=== PATIENT | female | born 1995 | race Caucasian/White ===

== ENCOUNTER 2017-06-02 07:46 | Inpatient (IN) | payer BC, OTHER ==
--- NOTE | 2017-06-02 08:32 | P.HPOB ---
History of Present Illness H&P Date: 06/02/17 This is a 21 -year-old white female 3 para 0111 EDC 06/20 18 at 37-4/7 weeks' gestation. Patient presented from home, delivering her baby on the couch. She states she woke at 05 100 with uterine contractions. She was getting ready to come into the hospital at which time she felt rectal pressure. She went to the couch and delivered very quickly liveborn male . EMS was called, scores were 6 and 9 at one and 5 minutes respectively. Patient states she believes her water broke approximately 3 minutes prior to delivery, clear fluid. She was taken to the hospital at that point. Obstetric history is significant for blood type O-, rubella status immune. Group B strep cultures positive. Pap smear, gonorrhea and chlamydia cultures, VDRL, urine culture, hepatitis B surface antigen, HIV all negative. Past surgical history is significant for negative tobacco, no alcohol or drug use, patient is . Past obstetric history vaginal delivery at 36 weeks' gestation with high blood pressure. Family history is unremarkable. Past medical history significant for ADHD and reflux. Past surgical history negative. Current medications vitamins daily. ALLERGIES none known. On exam this is a pleasant white female, she is 5 foot 10 inches, weight approximately 130 pounds, vital signs are stable and she is afebrile. The chest is clear in all oconnor. The extremities reveal no edema. Placenta delivers spontaneously, it is inspected and noted to be intact. The hospital, at approximately 0750 hours. Uterus is massaged. Inspection of the cervix, vagina, perineum, periurethral and perirectal areas reveals a small right perineal laceration. This was injected with lidocaine and repaired using 3-0 Vicryl suture. Total estimated blood loss 200 mL's. weighs 6 lbs. 11 oz. or 335 g. Future patient is aware of his status. Cord blood is sent to the lab for Rh- status. care is initiated. Review of Systems Constitutional: Reports as per HPI Past Medical History Past Medical History: No Reported History, GERD/Reflux Additional Past Medical History / Comment(s): ADHD History of Any Multi-Drug Resistant Organisms: None Reported Past Surgical History: No Surgical Hx Reported Past Anesthesia/Blood Transfusion Reactions: No Reported Reaction Past Psychological History: ADD/ADHD, Anxiety Smoking Status: Never smoker Past Drug Use History: None Reported - Past Family History Father Family Medical History: GERD/Reflux Medications and Allergies Home Medications Medication Instructions Recorded Confirmed Type Ibuprofen [Motrin] 600 mg PO Q6HR PRN #30 tab 09/30/15 Rx Labetalol [Trandate] 100 mg PO TID #15 tab 09/30/15 Rx Allergies Allergy/AdvReac Type Severity Reaction Status Date / Time No Known Allergies Allergy Verified 09/26/15 15:59 Exam See dictation under HPI please Assessment and Plan Plan: care to be initiated at this time. Circumcision tomorrow. Time with Patient: Greater than 30
[2017-06-02] MEDS ORDERED: SIMETHICONE 80 MG CHEWABLE PO PRN (08:45)
[2017-06-02] MEDS ORDERED: diphenhydrAMINE 25 MG CAP PO PRN (08:45)
[2017-06-02] MEDS ORDERED: OXYTOCIN 20 UNITS/1000 ML NS 1,000 ML IV SCH (08:45)
[2017-06-02] MEDS ORDERED: ZOLPIDEM 5 MG TAB PO PRN (08:45)
[2017-06-02] MEDS ORDERED: diphenhydrAMINE 50 MG/ML 1 ML VIAL IVP PRN ×2 (08:45)
[2017-06-02] MEDS ORDERED: BENZOCAINE/MENTHOL SPRAY 1 GM/SPRAY AEROSOL TOPICAL PRN (08:45)
[2017-06-02] MEDS ORDERED: diphenhydrAMINE 50 MG CAP PO PRN (08:45)
[2017-06-02] MEDS ORDERED: WITCH HAZEL 1 EACH MED..PAD TOPICAL PRN (08:45)
[2017-06-02] MEDS: IBUPROFEN 600 MG TAB PO PRN ×3 (08:45→22:25)
[2017-06-02] MEDS ORDERED: LANOLIN CREAM 5 GM TUBE TOPICAL PRN (08:45)
[2017-06-02] MEDS ORDERED: HYDROCORTISONE 2.5% RECTAL CREAM 30 GM TUBE RECTAL PRN (08:45)
[2017-06-02 09:28] VITALS: BMI 33.4
[2017-06-02 12:19] LABS: Uric Acid 6.3 mg/dL (3.7-7.4)
[2017-06-02] MEDS: ACETAMINOPHEN TAB 325 MG TAB PO PRN ×2 (19:56→23:52)
[2017-06-02] MEDS: SENNOSIDES-DOCUSATE SODIUM 1 EACH TAB PO SCH (19:57)
[2017-06-02] MEDS ORDERED: Rhogam IMMUNE GLOBULIN 1,500 UNIT/1 ML IM ONE (19:59)
[2017-06-03] MEDS: IBUPROFEN 600 MG TAB PO PRN ×3 (03:30→19:51)
[2017-06-03] MEDS: ACETAMINOPHEN TAB 325 MG TAB PO PRN ×3 (07:23→23:29)
--- NOTE | 2017-06-03 09:07 | P.PN ---
Subjective Progress Note Date: 06/03/17 Slept well, no complaints. Objective - Vital Signs Vital signs: Vital Signs Temp 97.9 F 06/03/17 07:36 Pulse 54 L 06/03/17 07:36 Resp 16 06/03/17 07:36 BP 110/71 06/03/17 07:36 Pulse Ox Intake & Output 06/02/17 06/03/17 06/03/17 18:59 06:59 18:59 Intake Total 1000 Balance 1000 Weight 72.575 kg Intake: Oral 1000 Other: # Voids 2 2 - Constitutional General appearance: Present: average body habitus, cooperative - EENT Eyes: Present: PERRLA ENT: Present: hearing grossly normal - Neck Neck: Present: normal ROM Thyroid: bilateral: normal size - Respiratory Respiratory: bilateral: CTA - Cardiovascular Rhythm: regular - Gastrointestinal General gastrointestinal: Present: normal bowel sounds - Integumentary Integumentary: Present: normal - Neurologic Neurologic: Present: CNII-XII intact - Musculoskeletal Musculoskeletal: Present: gait normal, strength equal bilaterally - Psychiatric Psychiatric: Present: A&O x's 3, appropriate affect, intact judgment & insight Assessment and Plan Assessment: Doing well post day #1 Plan: Continue post care. Circumcision now. Likely discharge home tomorrow. Time with Patient: Less than 30
[2017-06-03] MEDS: SENNOSIDES-DOCUSATE SODIUM 1 EACH TAB PO SCH ×2 (10:04→19:51)
[2017-06-04] MEDS: IBUPROFEN 600 MG TAB PO PRN ×2 (03:03→11:04)
--- NOTE | 2017-06-04 07:59 | P.DS ---
Providers Date of admission: 06/02/17 07:46 Expected date of discharge: 06/04/17 Attending physician: Missy Suárez - Discharge Diagnosis(es) (1) Precipitous delivery Current Visit: Yes Status: Acute (2) Active labor at term Current Visit: Yes Status: Acute Hospital Course: The patient is a 21-year-old 3 para 0111 admitted at 37-4/7 weeks. This has been uncomplicated though she does have a history of previous preeclampsia and her first with subsequent delivery. She is Rh- and received RhoGAM at 28 weeks and additionally is group B strep positive. For this labor, as she is preparing to come to the hospital should she felt significant pressure and actually delivered the infant on her couch at home while EMS was on the way. She was delivered of a viable baby boy with Apgars of 6 at 1 minute and 9 at 5 minutes. She then was brought to the hospital by EMS at which time the placenta was delivered. Her course was unremarkable with vital signs remaining stable and her temperature was afebrile throughout. She was deemed stable for discharge on day #2 and was discharged home to follow-up in the office in 6 weeks' time routinely. Discharge instructions included calling for any significantly increased bleeding or foul-smelling lochia, significantly increased fever abdominal pain, perineal complaints, breast complaints, or anything else that concerned her. She was additionally instructed to have nothing in the vagina for at least 6 weeks time to include intercourse. She understood her instructions and agrees to follow up as noted above. Discharge medications included continue vitamins as she has opted to breast-feed. She otherwise was to use [id number] analgesic pain medications. Maternal blood type is O- and cord blood was sent for evaluation for the necessity of RhoGAM prior to discharge. Rubella status is immune. Procedures: #1. Precipitous home delivery #2. Delivery of placenta Patient Condition at Discharge: Good Plan - Discharge Summary New Discharge Prescriptions: No Action No Known Home Medications [No Known Home Medications] Discharge Medication List No Known Home Medications [No Known Home Medications] 06/02/17 [History] Follow up Appointment(s)/Referral(s): Missy Suárez MD [STAFF PHYSICIAN] - 6 Weeks Discharge Disposition: HOME SELF-CARE
[2017-06-04] MEDS: ACETAMINOPHEN TAB 325 MG TAB PO PRN (08:06)
[2017-06-04] MEDS: SENNOSIDES-DOCUSATE SODIUM 1 EACH TAB PO SCH (08:07)
[2017-06-04 10:03] VITALS: BP 127/80; PULSE 68; RESP 16; TEMP 97.7
== END 2017-06-04 13:30 | disposition home or self-care (01) | DRG 775 ==
LOC: 4FBP 07:46
PROVIDERS: ADMIT Obstetrics & Gynecology; ATTEND Obstetrics & Gynecology
PROC: 10E0XZZ Delivery of Products of Conception, External Approach (ICD-10-PCS; principal; 2017-06-02)
PROC: 0HQ9XZZ Repair Perineum Skin, External Approach (ICD-10-PCS; 2017-06-02)
DX: O70.9 Perineal laceration during delivery, unspecified (principal); O99.344 Other mental disorders complicating childbirth; F41.9 Anxiety disorder, unspecified; F90.9 Attention-deficit hyperactivity disorder, unspecified type; K21.9 Gastro-esophageal reflux disease without esophagitis; O99.62 Diseases of the digestive system complicating childbirth; O99.824 Streptococcus B carrier state complicating childbirth; O26.893 Other specified pregnancy related conditions, third trimester; Z67.91 Unspecified blood type, Rh negative; Z3A.36 36 weeks gestation of pregnancy
CPT/HCPCS: 84450; 84460; 84550; 85461; 88307

== ENCOUNTER 2018-01-16 12:19 | Emergency (ER) | payer BC, OTHER ==
[2018-01-16 12:43] VITALS: RESP 16
--- NOTE | 2018-01-16 12:43 | ED ---
Lower Extremity Injury HPI - General Chief Complaint: Extremity Injury, Lower Stated Complaint: LEFT KNEE INJURY Time Seen by Provider: 01/16/18 12:19 Source: patient, RN notes reviewed Mode of arrival: EMS Limitations: no limitations - History of Present Illness Initial Comments: This is a 22-year-old female who presents by EMS with complaints of patellar dislocation. She states she walked into a trailer hitch on the back of her vehicle. She states she's had this happen to her before. She was brought in by EMS. She was given IV pain medication she states her hurts to do any type of movement of her knee. She currently is breast-feeding. MD Complaint: knee injury - Related Data Home Medications Medication Instructions Recorded Confirmed No Known Home Medications 06/02/17 06/02/17 Allergies Allergy/AdvReac Type Severity Reaction Status Date / Time No Known Allergies Allergy Verified 06/02/17 08:44 Review of Systems ROS Statement: Those systems with pertinent positive or pertinent negative responses have been documented in the HPI. ROS Other: All systems not noted in ROS Statement are negative. Past Medical History Past Medical History: No Reported History, GERD/Reflux Additional Past Medical History / Comment(s): ADHD History of Any Multi-Drug Resistant Organisms: None Reported Past Surgical History: No Surgical Hx Reported Past Anesthesia/Blood Transfusion Reactions: No Reported Reaction Past Psychological History: ADD/ADHD, Anxiety Smoking Status: Never smoker Past Drug Use History: None Reported - Past Family History Father Family Medical History: GERD/Reflux General Exam - General Exam Comments Initial Comments: This is a well-developed well-nourished awake alert oriented 3 female Limitations: no limitations General appearance: alert, anxious, in distress Head exam: Present: atraumatic, normocephalic, normal inspection Eye exam: Present: normal appearance, PERRL, EOMI. Absent: scleral icterus, conjunctival injection, periorbital swelling Extremities exam: Present: tenderness, normal capillary refill, other (Evidence of lateral displacement of the patella on the left lower extremity.). Absent: full ROM Neurological exam: Present: alert, oriented X3, CN II-XII intact Psychiatric exam: Present: normal affect, anxious Skin exam: Present: warm, dry, intact, normal color. Absent: rash Course Vital Signs 01/16/18 01/16/18 12:25 12:42 Temperature 98.3 F Pulse Rate 94 82 Respiratory 18 16 Rate Blood Pressure 116/69 100/70 O2 Sat by Pulse 99 99 Oximetry Procedures - Orthopedic Joint Reduction Joint #1 Consent Obtained: verbal consent Time Out Performed: Yes Side: left Joint Reduction Location: knee/patella Analgesia: none (The patient had previously had an IV pain medication per EMS) Technique Used: direct manipulation Post-Reduction Neuro Exam: intact Post-Reduction Vascular Exam: intact Post Reduction X-Ray Obtained: No (Not indicated) Splint Applied: Yes Patient Tolerated Procedure: well Medical Decision Making - Medical Decision Making I did discuss findings with the patient and her the patient will be discharged ice is recommended for next 24-48 hours Tylenol for pain Disposition Clinical Impression: Lateral subluxation of left patella, initial encounter Disposition: HOME SELF-CARE Condition: Good Instructions: Patellar Dislocation (ED) Additional Instructions: Ice 24-48 hours, Tylenol for pain Is patient prescribed a controlled substance at d/c from ED?: No Referrals: Abiodun Pang DO [Primary Care Provider] - 1-2 days
--- NOTE | 2018-01-16 12:45 | XR ---
EXAMINATION TYPE: XR knee limited LT , 2 VIEWS DATE OF EXAM ORDERED: 01/16/2018 HISTORY: Pain. COMPARISON: None. FINDINGS: The patella projects lateral to the intercondylar notch and is not seen overlying the inte rcondylar notch on the lateral projection. I suspect patellar dislocation. No definite fracture is se en. No joint effusion is seen. IMPRESSION: I SUSPECT A LATERAL PATELLAR DISLOCATION.
[2018-01-16 13:15] VITALS: BP 110/72; PULSE 81; TEMP 98.2
== END 2018-01-16 13:07 | disposition home or self-care (01) ==
LOC: EC 12:19
DX: S83.012A Lateral subluxation of left patella, initial encounter (principal); W22.8XXA Striking against or struck by other objects, initial encounter; Y92.009 Unspecified place in unspecified non-institutional (private) residence as the place of occurrence of the external cause
CPT/HCPCS: 73560; 99284; 27560; L1830 ×2

== ENCOUNTER → 2018-12-20 | Outpatient (CLI) | payer BC, OTHER ==
--- NOTE | 2018-12-20 14:46 | US ---
EXAMINATION TYPE: US abdomen complete DATE OF EXAM: 12/20/2018 COMPARISON: NONE CLINICAL HISTORY: 23-year-old female R10.811 right upper quadrant tenderness R11.0 nausea. TECHNIQUE: Multiple sonographic images of the abdomen are obtained. FINDINGS: EXAM MEASUREMENTS: Liver Length: 14.0 cm Gallbladder Wall: 0.2 cm CBD: 0.1 cm Spleen: 9.7 cm Right Kidney: 10.1 x 3.4 x 4.6 cm Left Kidney: 9.5 x 3.9 x 4.7 cm Pancreas: The majority of the pancreas is visualized and shows no gross abnormal value. Liver: wnl Gallbladder: wnl CBD: wnl Spleen: wnl Right Kidney: No hydronephrosis. Left Kidney: No hydronephrosis. Upper IVC: wnl Abd Aorta: wnl IMPRESSION: Unremarkable sonographic examination of the abdomen.
== END | disposition home or self-care (01) ==
LOC: RADUSWWP 11:49
PROVIDERS: ATTEND Family Medicine
DX: R10.811 Right upper quadrant abdominal tenderness (principal); R11.0 Nausea
CPT/HCPCS: 76700

== ENCOUNTER → 2019-05-03 | Outpatient (CLI) | payer BC, OTHER ==
--- NOTE | 2019-05-03 15:53 | US ---
EXAMINATION TYPE: US pelvic complete DATE OF EXAM: 05/03/2019 COMPARISON: NONE CLINICAL HISTORY: N92.6 Irregular menstruation, unspecified. Patient states no pain TECHNIQUE: . Transabdominal sonographic images of the pelvis were acquired. Date of LMP: Irregular cycles EXAM MEASUREMENTS: Uterus: 7.0 x 2.9 x 3.5 cm Endometrial Stripe: 0.4 cm Right Ovary: 2.6 x 2.1 x 1.7 cm Left Ovary: 2.7 x 1.7 x 1.8 cm 1. Uterus: Anteverted wnl 2. Endometrium: wnl 3. Right Ovary: Follicles visualized, wnl 4. Left Ovary: Follicles visualized, wnl 5. Bilateral Adnexa: wnl 6. Posterior cul-de-sac: wnl IMPRESSION: Unremarkable pelvic ultrasound
== END | disposition home or self-care (01) ==
LOC: RADUSWWP 13:41
PROVIDERS: ATTEND Family Medicine
DX: N92.6 Irregular menstruation, unspecified (principal)
CPT/HCPCS: 76856

== ENCOUNTER → 2020-01-19 | Outpatient (CLI) | payer BC, OTHER ==
[~2020-01-19] MED LIST: BETAMET ACET-BETAMETH SOD PHOS 6 MG/ML MDV IM SCH; CALCIUM GLUCONATE 1 GM/10 ML VIAL IV PRN; LACTATED RINGERS 1,000 ML IV SCH; MAGNESIUM SULFATE-WATER PMX 20 GM in WATER FOR INJECTION 1 500ML.BAG IV SCH; MAGNESIUM SULFATE-WATER PMX 4 GM in WATER FOR INJECTION 1 100ML.BAG IVPB ONE; PENICILLIN G POTASSIUM 2,500,000 UNIT in DEXTROSE 5% IN WATER 100 ML IVPB SCH; PENICILLIN G POTASSIUM 5,000,000 UNIT in DEXTROSE 5% IN WATER 100 ML IVPB ONE
--- NOTE | 2020-01-19 20:28 | P.HPOB ---
History of Present Illness H&P Date: 01/19/20 Past Medical History Past Medical History: No Reported History, GERD/Reflux Additional Past Medical History / Comment(s): ADHD History of Any Multi-Drug Resistant Organisms: None Reported Past Surgical History: No Surgical Hx Reported Past Anesthesia/Blood Transfusion Reactions: No Reported Reaction Smoking Status: Never smoker - Past Family History Father Family Medical History: GERD/Reflux Medications and Allergies Home Medications Medication Instructions Recorded Confirmed Type Pnv No.95/Ferrous Fum/Folic AC 1 tab PO ONCE 01/19/20 01/19/20 History [ Multivitamin Tablet] Allergies Allergy/AdvReac Type Severity Reaction Status Date / Time No Known Allergies Allergy Verified 01/19/20 19:34 Exam Intake and Output 01/19/20 01/19/20 01/19/20 06:59 14:59 22:59 Other: Weight 58.06 kg
--- NOTE | 2020-01-19 20:37 | P.HPOB ---
History of Present Illness H&P Date: 01/19/20 Chief Complaint: 34 and one sevenths weeks, labor The patient is a 24-year-old 4 para 1112 admitted at 34 and one sevenths weeks as established by last menstrual period and confirmed by 19 week ultrasound. She is admitted in active labor with all signs reassuring, category 1 heart rate tracing. She presented to labor and delivery with significant contractions and was noted to be penelope every 2-3 minutes. Cervical examination by the nursing staff demonstrates her cervix to be 2 cm dilated, 80% effaced, the vertex in presentation at -1 station. She has a history of a previous delivery at approximately 36 weeks of . Her to this point has been essentially uncomplicated though she is Rh- and received RhoGAM at 28 weeks. She has also requested a tubal ligation and signed consent to that effect in the office. Group B strep status is unknown at this time but she has a history of 2 previous pregnancies with positive group B strep status. Obstetrical history: 4 para 1112 with 1 term vaginal delivery and one 36 week vaginal delivery as well as one miscarriage. Current statistics are listed in history present illness. EDC of 03/01/2020 was established by last menstrual period and confirmed by 19 week ultrasound which time an anatomic survey was within normal limits. Laboratory workup demonstrates a blood type of O- with a negative antibody screen. Rubella status is immune. VDRL negative, urine screen negative, hepatitis B surface antigen negative. HIV was declined. Cultures were negative and early laboratories to screen for pre- existing concerns for PIH were all negative as well. One hour Glucola was within normal limits at 106. Group B strep status is pending. Pap smear was also normal. Gynecologic history: Unremarkable with no history of any infections to include STDs. Review of Systems Review of systems is confined to history of present illness. Past Medical History Past Medical History: No Reported History, GERD/Reflux Additional Past Medical History / Comment(s): ADHD History of Any Multi-Drug Resistant Organisms: None Reported Past Surgical History: No Surgical Hx Reported Past Anesthesia/Blood Transfusion Reactions: No Reported Reaction Smoking Status: Never smoker - Past Family History Father Family Medical History: GERD/Reflux Medications and Allergies Home Medications Medication Instructions Recorded Confirmed Type Pnv No.95/Ferrous Fum/Folic AC 1 tab PO ONCE 01/19/20 01/19/20 History [ Multivitamin Tablet] Allergies Allergy/AdvReac Type Severity Reaction Status Date / Time No Known Allergies Allergy Verified 01/19/20 19:34 Exam Intake and Output 01/19/20 01/19/20 01/19/20 06:59 14:59 22:59 Other: Weight 58.06 kg In general, this is a well-developed, well-nourished white female in no acute distress with complaints of contractions though she is not feeling all of them. Her heart has a regular rhythm and rate without murmur. Her lungs are clear to auscultation bilaterally in all oconnor. Her abdomen is gravid, nondistended, has normal active bowel sounds, soft, nontender, and without any palpable masses aside from the uterine fundus which is appropriate for gestational age. Her extremities are without any cyanosis, clubbing, or edema and are nontender to palpation bilaterally. Digital cervical examination performed by the nursing staff demonstrates her cervix to be 2 cm dilated, 80% effaced, with the vertex in presentation at -1 station. Previous check in the office 2 days ago demonstrated cervix with no dilation and 40% effaced by history. Assessment and Plan (1) 34 weeks gestation of Current Visit: Yes Status: Acute Code(s): Z3A.34 - 34 WEEKS GESTATION OF SNOMED Code(s): 20366871 (2) labor Current Visit: Yes Status: Acute Code(s): O60.00 - LABOR WITHOUT DELIVERY, UNSPECIFIED TRIMESTER SNOMED Code(s): 6433203 (3) Rh negative status during Current Visit: No Status: Acute Code(s): O09.899 - SUPERVISION OF OTHER HIGH RISK PREGNANCIES, UNSP TRIMESTER; Z67.91 - UNSPECIFIED BLOOD TYPE, RH NEGATIVE SNOMED Code(s): 568792232 Plan: Patient has been seen in triage and found to be in labor. As result, she has had magnesium sulfate started, 4 g IV bolus to be followed by 2 g per hour. Penicillin prophylaxis for group B strep has been started and she has received her first dose of betamethasone 12.5 mg intramuscularly to be repeated in 12-24 hours. I have discussed the case with the accepting physician, Dr. Morales, at [facility] in [place]. She is to be transferred by ambulance to the triage unit for further management and treatment secondary to issues of prematurity as we are unable to manage infants under 35 weeks here.
== END | disposition other institution (70) ==
LOC: FBPOP 19:22
PROVIDERS: ATTEND Obstetrics & Gynecology
DX: O60.03 Preterm labor without delivery, third trimester (principal); O09.893 Supervision of other high risk pregnancies, third trimester; Z3A.34 34 weeks gestation of pregnancy; Z67.91 Unspecified blood type, Rh negative
CPT/HCPCS: J3475 ×2; J2540; J0702; 59025; 96361; 96365; 96366; 96367; 96372; 99215

== ENCOUNTER 2020-01-27 21:00 | Inpatient (IN) | payer BC, OTHER ==
[2020-01-27] MEDS ORDERED: LIDOCAINE 0.5% (PF) 5 MG/ML (50 ML SDV) SQ PRN (21:59)
[2020-01-27] MEDS ORDERED: METHYLERGONOVINE 0.2 MG/ML 1 ML AMP IM PRN (21:59)
[2020-01-27] MEDS ORDERED: OXYTOCIN 10 UNIT/ML 1 ML VIAL IM PRN (21:59)
[2020-01-27] MEDS ORDERED: CARBOPROST TROMETHAMINE 250 MCG/ML 1 ML AMP IM PRN (21:59)
[2020-01-27] MEDS ORDERED: TERBUTALINE 1 MG/ML VIAL SQ PRN (21:59)
[2020-01-27] MEDS ORDERED: PENICILLIN G POTASSIUM 5,000,000 UNIT in DEXTROSE 5% IN WATER 100 ML IVPB ONE ×2 (22:00)
--- NOTE | 2020-01-27 22:10 | P.HPOB ---
History of Present Illness H&P Date: 01/27/20 Chief Complaint: Contractions at 35 and one sevenths weeks This is a 24 year old 4 para 1112 woman who has an estimated due date of 03/01/2020 based on LMP consistent with second trimester ultrasound. She presents at 35 and one sevenths weeks gestation with increasing contractions. Her has been complicated by labor. She was transferred to a tertiary care facility at 33-34 weeks for labor. She received steroids for lung maturity and observation. She was discharged on 01/21/2020. She has had irregular and increasing contractions since that time. 3 days ago she was approximate 2 cm dilated. Upon initial evaluation today in labor and delivery triage she is 4+ centimeters dilated and actively penelope. She denies leakage of fluids or vaginal bleeding. She's had good movement. She denies nausea, vomiting, fevers, chills, headaches or visual changes. Obstetric history is significant for a 35 week delivery in 2016, induced due to preeclampsia, female, 5 lbs. 12 oz. She then had a precipitous home delivery at 37-38 weeks in 2018, male, 6 lbs. 11 oz. She has is a history of a early spontaneous miscarriage in 2013. . Laboratory data: Group B strep positive. Blood type O-, antibody screen negative, rubella immune, VDRL nonreactive, hepatitis B surface antigen negative, HIV negative, gonorrhea and clinic cultures negative, glucose tolerance testing within normal limits. Received Rh IG on 12/08/2019. Past Medical History Past Medical History: No Reported History, GERD/Reflux Additional Past Medical History / Comment(s): ADHD History of Any Multi-Drug Resistant Organisms: None Reported Past Surgical History: No Surgical Hx Reported Past Anesthesia/Blood Transfusion Reactions: No Reported Reaction Smoking Status: Never smoker - Past Family History Father Family Medical History: GERD/Reflux Medications and Allergies Home Medications Medication Instructions Recorded Confirmed Type Pnv No.95/Ferrous Fum/Folic AC 1 tab PO ONCE 01/19/20 01/19/20 History [ Multivitamin Tablet] Allergies Allergy/AdvReac Type Severity Reaction Status Date / Time No Known Allergies Allergy Verified 01/19/20 19:34 Exam On my initial evaluation patient is a visibly gravid, comfortable appearing female in no acute distress. HEENT exam is unremarkable. Her breathing is unlabored and her heart is a regular rate and rhythm. The abdomen is gravid and soft with a fundal height consistent with dates. On pelvic exam she is 4 cm dilated 70% effaced vertex in the -2 station. Bulging membranes noted. On external monitoring heart tones are category 1. She is penelope every 2-3 minutes spontaneously. Assessment and Plan (1) Group B streptococcal infection in Current Visit: No Status: Acute Code(s): O98.819 - OTH MATERNAL INFEC/PARASTC DISEASES COMP PREG, UNSP TRI; B95.1 - STREPTOCOCCUS, GROUP B, CAUSING DISEASES [facility] SNOMED Code(s): 873457894 (2) labor Current Visit: No Status: Acute Code(s): O60.00 - LABOR WITHOUT DELIVERY, UNSPECIFIED TRIMESTER SNOMED Code(s): 7043759 (3) 35 to 36 weeks gestation of Current Visit: Yes Status: Acute Code(s): EYE4811 - SNOMED Code(s): 776110001 (4) Rh negative, maternal Current Visit: Yes Status: Acute Code(s): O26.899 - OTH RELATED CONDITIONS, UNSPECIFIED TRIMESTER; Z67.91 - UNSPECIFIED BLOOD TYPE, RH NEGATIVE SNOMED Code(s): 960720958 Plan: This is a 24 year old 4 para 1112 woman with an estimated due date of 03/01/2020 who is admitted in active labor at 35 and one sevenths weeks gestation. She has previously received steroids and is known group B strep positive. She will be admitted and group B strep prophylactic antibiotics will be initiated. The special care nursery has been notified. Patient may have an epidural analgesia upon request. status is currently reassuring with category 1 heart tones by external monitoring. Time with Patient: Greater than 30
[2020-01-27] MEDS: LACTATED RINGERS 1,000 ML IV SCH (22:21)
[2020-01-27 22:49] LABS: Basophils # (A) 0.1 k/uL (0-0.2); Basophils % (A) 1 %; Eosinophils # (A) 0.2 k/uL (0-0.7); Eosinophils % (A) 1 %; HCT 40.9 % (34.0-46.0); HGB 13.3 gm/dL (11.4-16.0); Lymphocytes # (A) 4.1 k/uL (1.0-4.8); Lymphocytes % (A) 29 %; MCHC 32.6 g/dL (31.0-37.0); MCV 86.1 fL (80.0-100.0); Mean Platelet Volume 8.3; Monocytes # (A) 0.6 k/uL (0-1.0); Monocytes % (A) 4 %; Neutrophils # (A) 9.1 k/uL (1.3-7.7); Neutrophils % (A) 64 %; Platelet Count 291 k/uL (150-450); RBC 4.75 m/uL (3.80-5.40); WBC 14.3 k/uL (3.8-10.6)
[2020-01-28] MEDS: PENICILLIN G POTASSIUM 2,500,000 UNIT in DEXTROSE 5% IN WATER 100 ML IVPB SCH ×4 (01:55→06:34)
[2020-01-28] MEDS ORDERED: diphenhydrAMINE 50 MG CAP PO PRN (05:49)
[2020-01-28] MEDS ORDERED: LANOLIN CREAM 5 GM TUBE TOPICAL PRN (05:49)
[2020-01-28] MEDS ORDERED: HYDROCORTISONE 2.5% RECTAL CREAM 30 GM TUBE RECTAL PRN (05:49)
[2020-01-28] MEDS ORDERED: diphenhydrAMINE 50 MG/ML 1 ML VIAL IVP PRN ×2 (05:49)
[2020-01-28] MEDS ORDERED: diphenhydrAMINE 25 MG CAP PO PRN (05:49)
[2020-01-28] MEDS ORDERED: SIMETHICONE 80 MG CHEWABLE PO PRN (05:49)
[2020-01-28] MEDS ORDERED: BENZOCAINE/MENTHOL SPRAY 1 GM/SPRAY AEROSOL TOPICAL PRN (05:49)
[2020-01-28] MEDS ORDERED: ZOLPIDEM 5 MG TAB PO PRN (05:49)
[2020-01-28] MEDS ORDERED: OXYTOCIN 20 UNITS/1000 ML NS 1,000 ML IV SCH (06:00)
--- NOTE | 2020-01-28 06:01 | P.PROBDLV ---
Vaginal Delivery Note - . Vaginal Delivery Note: Findings: Male infant in the vertex left occiput anterior position with Apgars of 8 at 1 minute and 9 at 5 minutes weighing 5 lbs. 10 oz., 2575 g. Intact three-vessel cord placenta. No perineal lacerations. EBL 100 mL's. Delivery summary: This is a 24-year-old 4 para 1112 woman who presented at 35 and one sevenths weeks gestation in spontaneous active labor. Her had been complicated by episodes of labor and she previously received steroids for lung maturity. Following admission she received group B strep prophylactic antibiotics, 2 doses. She had artificial rupture of membranes when she was 5+ centimeters dilated. Following artificial rupture of membranes she had rapid progression of her labor. She reached complete cervical dilation less than 1 hour later. When she reached complete she had uncontrollable urge to push. She was repositioned in the dorsal lithotomy position. The the head crowned and delivered with 1 push. The nose and mouth were bulb suctioned on the perineum. The anterior followed by the posterior shoulders were then rapidly delivered the rest the infant was delivered onto the field. The cord was clamped and cut and the infant was handed to the warmer for assessment. Apgars were 8 at 1 minute and 9 at 5 minutes and weight was 5 lbs. 10 oz. An intact, three-vessel cord placenta was delivered after a rapid third stage of labor. The uterus was massaged and was noted to be firm. EBL was approximately 100 mL's. The perineum, via in the vagina and cervix were inspected and no lacerations were noted. All counts were correct and both mother and were doing well post delivery in the room.
[2020-01-28] MEDS: IBUPROFEN 600 MG TAB PO PRN ×3 (06:25→22:10)
[2020-01-28] MEDS: LACTATED RINGERS 1,000 ML IV SCH (06:33)
[2020-01-28] MEDS ORDERED: Rhogam IMMUNE GLOBULIN 1,500 UNIT/1 ML IM ONE (14:10)
[2020-01-28] MEDS: SENNOSIDES-DOCUSATE SODIUM 1 EACH TAB PO SCH ×2 (19:52→19:53)
[2020-01-28] MEDS: ACETAMINOPHEN TAB 325 MG TAB PO PRN (19:53)
[2020-01-29] MEDS: ACETAMINOPHEN TAB 325 MG TAB PO PRN ×3 (02:33→19:42)
[2020-01-29] MEDS: IBUPROFEN 600 MG TAB PO PRN ×3 (06:36→22:34)
[2020-01-29 06:56] LABS: Basophils # (A) 0.1 k/uL (0-0.2); Basophils % (A) 0 %; Eosinophils # (A) 0.2 k/uL (0-0.7); Eosinophils % (A) 1 %; HCT 37.6 % (34.0-46.0); HGB 11.9 gm/dL (11.4-16.0); Lymphocytes # (A) 3.4 k/uL (1.0-4.8); Lymphocytes % (A) 28 %; MCH 27.5 pg (25.0-35.0); MCHC 31.7 g/dL (31.0-37.0); MCV 86.7 fL (80.0-100.0); Mean Platelet Volume 7.5; Monocytes # (A) 0.5 k/uL (0-1.0); Monocytes % (A) 4 %; Neutrophils # (A) 7.9 k/uL (1.3-7.7); Neutrophils % (A) 65 %; Platelet Count 230 k/uL (150-450); RBC 4.33 m/uL (3.80-5.40); RDW 14.1 % (11.5-15.5); WBC 12.2 k/uL (3.8-10.6)
[2020-01-29] MEDS: SENNOSIDES-DOCUSATE SODIUM 1 EACH TAB PO SCH ×2 (09:28→19:38)
--- NOTE | 2020-01-29 10:09 | P.PNOBGVD ---
Subjective - Subjective Principal diagnosis: delivery at 35 weeks Interval history: Doing very well. Infant is in the nursery, working on feeding issues Patient reports: Reports appetite normal, Reports voiding normally, Reports pain well controlled, Reports ambulating normally : in NICU Objective - Latest Vital Signs Latest vital signs: Vital Signs Temp Pulse Resp BP Pulse Ox 01/29/20 08:00 97.5 F L 90 16 113/70 01/29/20 00:05 97.9 F 71 18 105/67 97 01/28/20 16:00 98.3 F 72 16 108/65 01/28/20 12:00 98.1 F 85 16 122/53 Intake and Output 01/28/20 01/29/20 01/29/20 23:59 06:59 14:59 Other: # Voids 1 - Exam Lungs: bilateral: normal Extremities: Present: normal. Absent: edema Abdomen: Present: normal appearance, soft. Absent: tenderness Uterus: Present: normal, firm. Absent: tenderness - Labs Labs: Abnormal Lab Results - Last 24 Hours (Table) 01/29/20 Range/Units 06:22 WBC 12.2 H (3.8-10.6) k/uL Neutrophils # 7.9 H (1.3-7.7) k/uL Assessment and Plan (1) Group B streptococcal infection in Current Visit: No Status: Acute Code(s): O98.819 - OTH MATERNAL INFEC/PARASTC DISEASES COMP PREG, UNSP TRI; B95.1 - STREPTOCOCCUS, GROUP B, [facility]US[facility] Code(s): 178356579 (2) labor Current Visit: No Status: Acute Code(s): O60.00 - LABOR WITHOUT DELIVERY, UNSPECIFIED TRIMESTER SNOMED Code(s): 2420765 (3) 35 to 36 weeks gestation of Current Visit: Yes Status: Acute Code(s): EQF0379 - SNOMED Code(s): 965271038 (4) Rh negative, maternal Current Visit: Yes Status: Acute Code(s): O26.899 - OTH RELATED CONDITIONS, UNSPECIFIED TRIMESTER; Z67.91 - UNSPECIFIED BLOOD TYPE, RH NEGATIVE SNOMED Code(s): 609685173 (5) Normal spontaneous vaginal delivery Current Visit: Yes Status: Acute Code(s): O80 - ENCOUNTER FOR FULL-TERM UNCOMPLICATED DELIVERY SNOMED Code(s): 18039870 Plan: day #1 status post spontaneous vaginal delivery at 35 weeks gestation. Infant is in the special care nursery but is doing well. Prescription for breast pump provided. Probable discharge home tomorrow.
[2020-01-30] MEDS: ACETAMINOPHEN TAB 325 MG TAB PO PRN ×2 (03:47→13:11)
[2020-01-30] MEDS: IBUPROFEN 600 MG TAB PO PRN ×2 (07:22→15:29)
[2020-01-30] MEDS: SENNOSIDES-DOCUSATE SODIUM 1 EACH TAB PO SCH (07:23)
[2020-01-30 07:34] VITALS: BP 117/63; PULSE 84; RESP 16; TEMP 97.8
--- NOTE | 2020-01-30 10:09 | P.DS ---
Providers Date of admission: 01/27/20 21:40 Expected date of discharge: 01/30/20 Attending physician: Missy Suárez Primary care physician: Stated None Hospital Course: This is a 24 rolled white female 4 para 2012 EDC 03/01/2020 at 35-2/7 weeks' gestation. Patient presented in active spontaneous labor from home. remarkable for positive group B strep cultures, rubella status immune, blood type O-. Please see dictated history and physical for details. Patient was admitted and underwent a spontaneous vaginal delivery of a liveborn male infant with scores of 8 and 9 at one and 5 minutes respectively. He weighed 2575 g or 5 lbs. 11 oz. She did well, no lacerations encountered, estimated blood loss 100 mL's. Please see dictated delivery note for details. This morning the patient is doing well. She is voiding, ambulating, passing flatus without difficulty. Vital signs are stable and she is afebrile. Fundus is firm and in the midline, symmetric and 18 week size. Extremities are negative for edema. Chest is clear in all oconnor. infant is in the nursery, circumcision is not yet advised. He is otherwise doing well and advancing on his feeding. Patient herself is judged to be in excellent condition for discharge home. Aaliyah will follow-up with me in the office in 6 weeks. I have reminded her no intercourse, tampons or douching. She will call with any fevers shakes or chills, foul smelling or copious lochia, with the passage of large blood clots, with any pain not alleviated by [id number] products, or indeed with any concerns. A prescription is given for a double electric breast pump. We have briefly discussed options for contraception and we'll review this further in the office. Assessment: Doing well day #2 Patient Condition at Discharge: Good Plan - Discharge Summary Discharge Rx Participant: No New Discharge Prescriptions: No Action Pnv No.95/Ferrous Fum/Folic AC [ Multivitamin Tablet] 1 tab PO ONCE Aspirin [Children's Aspirin] 81 mg PO DAILY Ferrous Sulfate [Iron] 325 mg PO DAILY Discharge Medication List Pnv No.95/Ferrous Fum/Folic AC [ Multivitamin Tablet] 1 tab PO ONCE 01/19/20 [History] Aspirin [Children's Aspirin] 81 mg PO DAILY 01/28/20 [History] Ferrous Sulfate [Iron] 325 mg PO DAILY 01/28/20 [History] Follow up Appointment(s)/Referral(s): Missy Suárez MD [STAFF PHYSICIAN] - 6 Weeks Discharge Disposition: HOME SELF-CARE
== END 2020-01-30 15:46 | disposition home or self-care (01) | DRG 806 ==
LOC: FBPOP 21:00 → 4FBP 21:40
PROVIDERS: ADMIT Obstetrics & Gynecology; ATTEND Obstetrics & Gynecology
PROC: 10907ZC Drainage of Amniotic Fluid, Therapeutic from Products of Conception, Via Natural or Artificial Opening (ICD-10-PCS; principal; 2020-01-28)
PROC: 10E0XZZ Delivery of Products of Conception, External Approach (ICD-10-PCS; principal; 2020-01-28)
PROC: 3E0334Z Introduction of Serum, Toxoid and Vaccine into Peripheral Vein, Percutaneous Approach (ICD-10-PCS; principal; 2020-01-28)
DX: O60.14X0 Preterm labor third trimester with preterm delivery third trimester, not applicable or unspecified (principal); O36.0130 Maternal care for anti-D [Rh] antibodies, third trimester, not applicable or unspecified; Z37.0 Single live birth; O99.344 Other mental disorders complicating childbirth; O99.824 Streptococcus B carrier state complicating childbirth; F90.9 Attention-deficit hyperactivity disorder, unspecified type; K21.9 Gastro-esophageal reflux disease without esophagitis; B95.1 Streptococcus, group B, as the cause of diseases classified elsewhere; Z3A.35 35 weeks gestation of pregnancy
CPT/HCPCS: 59025; 84112; 85025; 85461; 86850; 86870; 86880; 86900; 86901; 88307; 99213

== ENCOUNTER → 2020-03-21 | Outpatient (CLI) | payer BC, OTHER ==
[2020-03-21 14:38] LABS: Basophils % (A) 1 %; Eosinophils # (A) 0.2 k/uL (0-0.7); Eosinophils % (A) 2 %; HCT 40.8 % (34.0-46.0); Lymphocytes # (A) 3.5 k/uL (1.0-4.8); Lymphocytes % (A) 40 %; MCH 27.1 pg (25.0-35.0); MCHC 31.8 g/dL (31.0-37.0); MCV 85.1 fL (80.0-100.0); Mean Platelet Volume 6.5; Monocytes # (A) 0.3 k/uL (0-1.0); Monocytes % (A) 3 %; Neutrophils # (A) 4.5 k/uL (1.3-7.7); Neutrophils % (A) 53 %; Platelet Count 307 k/uL (150-450); RDW 13.6 % (11.5-15.5); WBC 8.6 k/uL (3.8-10.6)
== END | disposition home or self-care (01) ==
LOC: LABPAT 14:03
PROVIDERS: ATTEND Obstetrics & Gynecology
DX: Z01.818 Encounter for other preprocedural examination (principal)
CPT/HCPCS: 36415; 85025

== ENCOUNTER → 2021-03-04 | Outpatient (CLI) | payer OTHER ==
--- NOTE | 2021-03-04 10:25 | USB ---
Reason for exam: clinical finding. History: Family history of breast cancer in paternal grandmother. Taking hormonal contraceptives. Indicated problem(s): non-bloody discharge in both breasts. Physical Findings: Nurse Summary: Patient complains of milky, white discharge x 2 months (nurse mj). US Breast RT Right complete breast ultrasound includes all four quadrants, the retroareolar region and axilla. Finding demonstrates no cystic or solid lesion seen. These results were verbally communicated with the patient and result sheet given to the patient on 03/04/21. ASSESSMENT: Negative, BI-RAD 1 RECOMMENDATION: Routine screening mammogram of both breasts at age 38. Manage patient on a clinical basis.
== END | disposition home or self-care (01) ==
LOC: RADUSWWP 08:13
PROVIDERS: ATTEND Family Medicine
DX: N64.52 Nipple discharge (principal); Z80.3 Family history of malignant neoplasm of breast

== ENCOUNTER → 2021-03-13 | Outpatient (CLI) | payer OTHER ==
--- NOTE | 2021-03-13 14:46 | US ---
EXAMINATION TYPE: US pelvis complete transvag DATE OF EXAM: 03/13/2021 COMPARISON: 05/03/2019 CLINICAL HISTORY: N91.1 Secondary amenorrhea. TECHNIQUE: Transvaginal (TV). Transabdominal sonographic images of the pelvis were acquired. Trans vaginal sonographic images were medically necessary to better assess the following anatomy: Uterus Date of LMP: Irregular EXAM MEASUREMENTS: Uterus: 7.4x3.9x3.9 cm Endometrial Stripe: 0.2 cm Right Ovary: 2.9x1.6x1.5 cm Left Ovary: 2.5x1.8x1.5 cm 1. Uterus: Anteverted Posterior Hyperechoic area 1.1x1.1x1.0cm 2. Endometrium: wnl 3. Right Ovary: wnl 4. Left Ovary: wnl 5. Bilateral Adnexa: wnl 6. Posterior cul-de-sac: wnl IMPRESSION: 1. There is a nonspecific 1.1 cm hyperechoic area involving the posterior uterus could represent a ut erine fibroid. Correlate with MRI as clinically warranted. Other etiologies not excluded.
== END | disposition home or self-care (01) ==
LOC: RADUSWWP 14:09
PROVIDERS: ATTEND Family Medicine
DX: N91.1 Secondary amenorrhea (principal); R93.89 Abnormal findings on diagnostic imaging of other specified body structures
CPT/HCPCS: 76830; 76856

== ENCOUNTER → 2021-10-29 | Outpatient (CLI) | payer OTHER ==
--- NOTE | 2021-10-29 15:47 | US ---
EXAMINATION TYPE: Transabdominal DATE OF EXAM: 10/29/2021 3:31 PM COMPARISON: NONE CLINICAL HISTORY: Z36.89 CONFIRM GESTATIONAL DIABETES. Confirm dates EXAM PERFORMED: Transabdominal (TA) EXAM MEASUREMENTS: GESTATIONAL AGE / DATING Physician Established: (8 weeks/4 days) EDC: 06/06/2022 Dates by LMP: (8 weeks/4 days) EDC: 06/06/2022 Dates by First Scan: No previous this is first scan Dates by Current Scan for: ( 8 weeks/1 days) EDC: 06/09/2022 MATERNAL ANATOMY Uterus: 8.0 x 4.7 x 5.6cm Right Ovary: 2.3 x 1.3 x 1.9cm Left Ovary: 3.3 x 2.2 x 2.3cm Post CDS / Adnexa: wnl Presence of free fluid: no Presence of corpus luteal cyst: not seen Presence of subchorionic bleed: no GESTATION / SURVEY CRL: 1.7cm (8 weeks/1 days) Yolk Sac (normal less than 6mm): not seen Heart Rate: 176 bpm Rhythm: Normal IUP: Viable IUP IMPRESSION: Single intrauterine gestation estimated at 8 weeks 1 day gestation based on crown-rump length. Cardia c activity measures 176 bpm.
== END ==
LOC: RADUSWWP 14:58
PROVIDERS: ATTEND Obstetrics & Gynecology
DX: Z36.89 Encounter for other specified antenatal screening (principal)
CPT/HCPCS: 76801

== ENCOUNTER 2022-03-20 16:25 | Outpatient (CLI) | payer OTHER ==
[2022-03-20 19:19] VITALS: BP 117/71; PULSE 60; RESP 14; TEMP 98.1
--- NOTE | 2022-03-27 12:07 | P.MSEPDOC ---
Presenting Problems - Arrival Data Date of Arrival on Unit: 03/20/22 Time of Arrival on Unit: 16:25 Mode of Transport: Ambulatory - Complaint OB-Reason for Admission/Chief Complaint: Rule Out SROM Comment: Pt is a with CECILLE 06/06/22 here at 28.6 weeks of gestation with c/o leaking. for a couple weeks and lower back pain since yesterday. Pt reports that she called the. office and was given instructions to come to triage for an anmiotic fluid check and a. UTI check. Pt denies complications with the . Medical History - Information : 5 Para: 3 Term: 0 : 3 Abortions: Spontaneous or Elective: 1 Number of Living Children: 3 - Gestational Age Gestational Age by CECILLE (wks/days): 28 Weeks and 6 Days - History Complications: Prior Review of Systems - Review of Systems Constitutional: No problems Breast: No problems ENT: No problems Cardiovascular: No problems Respiratory: No problems Gastrointestinal: No problems Genitourinary: No problems Musculoskeletal: No problems Neurological: No problems Skin: No problems Vital Signs - Temperature Temperature: 98.1 F Temperature Source: Temporal Artery Scan - Pulse Pulse Oximetery Pulse Rate: 60 Pulse Assessment Method: Pulse Oximetry - Respirations Respiratory Rate: 14 Oxygen Delivery Method: Room Air O2 Sat by Pulse Oximetry: 100 - Blood Pressure Right Arm Blood Pressure: 117/71 Blood Pressure Mean: 86 Blood Pressure Source: Automatic Cuff Medical Screen Scoring - Cervical Exam Dilation (cm): 0 Membranes: Intact - Uterine Contractions Frequency From (mins): 2 Frequency To (mins): 3 Duration From (seconds): 50 Duration To (seconds): 90 Intensity: Mild Resting: Soft to palpation - Assessment - Baby A Baseline FHR: 150 Heart Rate - NICHD Category: Category I (Normal) NST: Reactive Physician Notification - Physician Notified Physician Notified Date: 03/20/22 Physician Notified Time: 17:02 Physician: Carolin Funk - Notification Comment Comment: Dr. Funk notified of pt's arrival to triage and her complaints. Provider. aware of maternal status including VS and UC's, and status including FHTs. Orders. for RN to obtain an FFN at this time and SVE. Per Dr. Funk, if pt is closed than she. can D/C home with routine follow-up in the office. Maternal Triage Index - Maternal Triage Index Presenting for scheduled procedure w/no complaint: No - Stat/Priority 1 Stat Priority 1: No - Urgent/Priority 2 Urgent Priority 2: Yes Provider Notified: Carolin Funk Provider Notified Time: 17:02 Criteria Met for Priority 2: Dr. Funk notified of pt's arrival to triage and her complaints. Provider. aware of maternal status including VS and UC's, and status including FHTs. Orders. for RN to obtain an FFN at this time and SVE. Per Dr. Funk, if pt is closed than she. can D/C home with routine follow-up in the office. Disposition - Disposition OB Disposition: Discharge to home Discharge Date: 03/20/22 Discharge Time: 18:40 I agree with the RN Medical Screening Exam: Yes Case reviewed; plan agreed upon as documented in EMR&OBIX.: Yes Diagnosis: ACUTE VAGINITIS
== END 2022-03-20 18:40 ==
LOC: FBPOP 16:25
PROVIDERS: ATTEND Obstetrics & Gynecology
DX: O23.591 Infection of other part of genital tract in pregnancy, first trimester (principal); Z91.018 Allergy to other foods; Z3A.28 28 weeks gestation of pregnancy
CPT/HCPCS: 59025; 84112; 82731; G0463; 99213

== ENCOUNTER → 2022-10-30 | Outpatient (CLI) | payer OTHER ==
--- NOTE | 2022-10-30 12:08 | US ---
EXAMINATION TYPE: US abdomen limited DATE OF EXAM: 10/30/2022 COMPARISON: NONE CLINICAL INDICATION: Female, 27 years old with history of R74.01 ELEVATED LIVER TRANSAMINASE LEVELS; elevated liver enzymes TECHNIQUE: Multiple sonographic images of the right upper quadrant are obtained. FINDINGS: EXAM MEASUREMENTS: Liver Length: 14.2 cm Gallbladder Wall: .2 cm CBD: .4 cm Right Kidney: 8.8 x 3.0 x 4.1 cm Pancreas: wnl Liver: There is normal homogeneous echotexture. No focal lesions. Gallbladder: No stones seen Evidence for sonographic Alarcon's sign: No CBD: wnl Right Kidney: wnl IMPRESSION: Unremarkable sonographic examination of the right upper quadrant. No gallstones or biliary ductal dil atation.
== END | disposition home or self-care (01) ==
LOC: RADUSWWP 09:46
PROVIDERS: ATTEND Family Medicine
DX: R74.01 Elevation of levels of liver transaminase levels (principal)
CPT/HCPCS: 76705

== ENCOUNTER 2024-07-26 12:28 | Day surgery (SDC) | payer OTHER ==
[2024-07-25 09:29] VITALS: BMI 28.5
[~2024-07-26 12:28] MED LIST changes: -BETAMET ACET-BETAMETH SOD PHOS 6 MG/ML MDV IM SCH; -CALCIUM GLUCONATE 1 GM/10 ML VIAL IV PRN; -LACTATED RINGERS 1,000 ML IV SCH; +LIDOCAINE 1% (10MG/ML) FOR IV START INTRADERMA PRN; -MAGNESIUM SULFATE-WATER PMX 20 GM in WATER FOR INJECTION 1 500ML.BAG IV SCH; -MAGNESIUM SULFATE-WATER PMX 4 GM in WATER FOR INJECTION 1 100ML.BAG IVPB ONE; -PENICILLIN G POTASSIUM 2,500,000 UNIT in DEXTROSE 5% IN WATER 100 ML IVPB SCH; -PENICILLIN G POTASSIUM 5,000,000 UNIT in DEXTROSE 5% IN WATER 100 ML IVPB ONE
[2024-07-26] MEDS: IV FLUID CONTINUATION 1,000 ML IV ONE ×2 (12:59→13:00)
[2024-07-26] MEDS: LACTATED RINGERS 1,000 ML IV SCH (13:16)
[2024-07-26 13:20] VITALS: TEMP 98
[2024-07-26] MEDS ORDERED: PROPOFOL 10 MG/ML 20 ML VIAL IV ONE (13:42)
[2024-07-26] MEDS ORDERED: LIDOCAINE 1% INJ 10MG/ML (20 ML MDV) ONE (13:42)
[2024-07-26 14:26] VITALS: BP 103/68; PULSE 89; RESP 18
--- NOTE | 2024-09-01 11:08 | P.OP ---
Date of Procedure: 07/26/24 Preoperative Diagnosis: GI bleed Postoperative Diagnosis: gastritis Procedure(s) Performed: EGD w/ Biopsy Anesthesia: MARLEENA, local Surgeon: Rishi Arellano Pathology: other (antrum) Condition: stable Disposition: PACU Indications for Procedure: GI BLeed Operative Findings: gastritis/ulcer Description of Procedure: The patient was brought to the operative suite where a timeout was performed and everyone agreed with the information recited. Next an adult sized olymposcope was used to traverse the mouth, esophagus, stomach to the second portion of the duodenum. The scope was slowly retracted to the stomach where a small ulcer was observed. The scope was retroflexed and a small hiatal hernia was observed. The scope was retracted out the stomach, esophagus, mouth intact. The patient tolerated the procedure well and was transported to pacu in stable condition.
== END 2024-07-26 14:47 | disposition home or self-care (01) ==
LOC: ORWHC2ENDO 12:28
PROVIDERS: ATTEND Surgery
DX: K29.50 Unspecified chronic gastritis without bleeding (principal); K21.9 Gastro-esophageal reflux disease without esophagitis; F41.9 Anxiety disorder, unspecified; F90.9 Attention-deficit hyperactivity disorder, unspecified type; K58.9 Irritable bowel syndrome, unspecified; Z79.899 Other long term (current) drug therapy; Z91.040 Latex allergy status; Z91.018 Allergy to other foods
CPT/HCPCS: 81025; 88305; 45380; 43239; J2003; J2704